=== PATIENT | male | born 1960 | race Caucasian/White ===

== ENCOUNTER 2022-05-25 10:44 | Outpatient (REF) | payer OTHER, SELFPAY ==
[2022-05-25 14:28] LABS: Alanine Aminotransferase 27 U/L (0-40); Albumin Level 4.3 g/dL (3.5-5.0); Alkaline Phosphatase 61 U/L (39-117); Anion Gap 14 (12-20); Aspartate Amino Transferase 28 U/L (5-37); Bilirubin Total 1.4 mg/dL (0.0-1.0); Blood Urea Nitrogen 14 mg/dL (9-16); Calcium 9.4 mg/dL (8.4-10.2); Carbon Dioxide 27 mmol/L (22-29); Chloride 104 mmol/L (96-108); Cholesterol 126 mg/dL; Estimated Glomerular Filt Rate > 60; Glucose Fasting 94 mg/dL (60-99); HDL Cholesterol 49 mg/dL; LDL Cholesterol Calculated 67 mg/dl; Potassium 3.8 mmol/L (3.3-5.1); Sodium 141 mmol/L (135-145); Total Protein 7.1 g/dL (6.5-8.0); Triglycerides 52 mg/dL
[2022-05-25 14:40] LABS: Prostate Specific Antigen Scr 0.85 ng/mL (<0.05-4.0); TSH reflex Free T4 2.65 uIU/mL (0.32-4.0)
== END 2022-05-25 10:45 | disposition home or self-care (01) ==
LOC: HO.WFDLDS 10:44
PROVIDERS: Visit Provider Family Medicine
DX: Z00.00 Encounter for general adult medical examination without abnormal findings (principal); Z12.5 Encounter for screening for malignant neoplasm of prostate
CPT/HCPCS: 36415; 80053; 80061; 84153; 84443

== ENCOUNTER 2022-08-03 11:59 | Outpatient (REF) | payer OTHER, SELFPAY ==
[2022-08-03 14:41] LABS: Cholesterol 142 mg/dL; HDL Cholesterol 45 mg/dL; LDL Cholesterol Calculated 78 mg/dl; Triglycerides 99 mg/dL
== END 2022-08-03 12:00 | disposition home or self-care (01) ==
LOC: HO.WFDLDS 11:59
PROVIDERS: Visit Provider Family Medicine
DX: Z00.00 Encounter for general adult medical examination without abnormal findings (principal); E78.5 Hyperlipidemia, unspecified
CPT/HCPCS: 36415; 80061

== ENCOUNTER 2023-08-09 08:57 | Outpatient (AMB) | payer OTHER, SELFPAY ==
--- NOTE | 2023-08-09 09:10 | MHC.PC.OV ---
Vital Signs 08/09/23 09:12 Height 5 ft 11 in Weight 206 lb BMI 28.7 BP 128/76 Blood Pressure Location Lt brachial Position Sitting Pulse 73 Pulse Source Pulse Oximeter Pulse Oximetry (%) 98 Oxygen Delivery Method Room Air Intake Visit Reasons: CPE with f/u labs and health maint. Intake Note: Patient is here for his physical today. Allergies No Known Allergies Allergy (Verified 08/09/23 09:14) Tobacco use date assessed: 08/09/23 Fall risk assessment: No Falls in past year Last assessed Fall Risk: 08/09/23 Dental Screening Dental Screen Date: 08/09/23 Did you have a dental visit in the last 12 months?: Yes Did you have a dental problem in the last 6 months where you did not have access to dental care?: No Was dental information given to patient?: Patient has dentist HPI CPE with f/u labs and health maint. HPI Details 62 y/o male presents for a CPE with f/u labs and health maintenance. No recent labs to review. Blood pressure today 128/76. He is on metoprolol 100mg daily. [facility] Social History (Reviewed 08/09/23 @ 09:16 by Betty Durand [facility]) Housing: House Patient Tobacco Use Status: Never used Tobacco Tobacco use type: Cigarette e-Cigarette/Vaping Use: Never Used Second Hand Smoke Exposure: No service: No Current occupational status: employed Current occupational exposures/hazards: No Cognitive needs: No Hearing needs: No Vision needs: No Questionnaire Thrive Questionnaire Date Thrive assessed: 09/03/22 TYE-7 AMB Questionnaire TYE-7 Date TYE - 7 assessed: 09/03/22 Source: Developed by Drs. Mka Davis, Tiffanie Vora, Thaddeus Kumari and colleagues, with an educational ty from [employer]. Review of Systems Const Denies chills, Denies fatigue, Denies fever(s), Denies headache(s) and Denies weakness Eyes Denies change in vision ENT Denies dizziness, Denies headache(s), Denies hearing loss, Denies nasal congestion, Denies sinus pain, Denies sinus pressure and Denies sore throat Card Denies chest pain, Denies lightheadedness, Denies dyspnea and Denies other (palpitations) Resp Denies cough, Denies dyspnea and Denies wheezing GI Denies abdominal pain, Denies melena, Denies hematochezia, Denies change in bowel habits, Denies dyspepsia and Denies nausea Denies hematuria and Denies dysuria Musc Denies abnormal gait, Denies myalgias, Denies arthralgias, Denies numbness and Denies tingling Skin/Breast Denies rash, Denies unusual bruising and Denies wounds Neuro Denies abnormal gait, Denies dizziness, Denies headache(s), Denies memory loss, Denies numbness, Denies Sensory deficit (Neuro), Denies tingling and Denies weakness Psych Denies anxiety, Denies depression and Denies memory loss Endo Denies cold intolerance, Denies fatigue, Denies heat intolerance, Denies polydipsia and Denies polyuria Winston/Lymph Denies easy bleeding and Denies easy bruising Aller/Immun Denies wheezing Physical exam (Primary Care) Vital Signs: Last Vital Signs Pulse 73 08/09/23 09:12 BP 128/76 08/09/23 09:12 Pulse Ox 98 08/09/23 09:12 Oxygen Delivery Method Room Air 08/09/23 09:12 BMI result Body Mass Index 28.7 Tobacco/Smoking Status: Tobacco use Status Tobacco use date assessed 08/09/23 08/09/23 09:19 Patient Tobacco Use Status Never used Tobacco 08/09/23 09:10 Tobacco use type Cigarette 08/09/23 09:10 e-Cigarette/Vaping Use Never Used 08/09/23 09:10 Thrive Assessment: Date of Thrive Assessment Date Thrive assessed 09/03/22 08/09/23 09:10 Const General: no acute distress, well developed, alert and awake Nutritional Appearance: well nourished Orientation/consciousness: patient oriented x3 HENMT Head: Yes normocephalic and Yes atraumatic Ears: hearing grossly normal bilaterally and TM's normal bilaterally General nose exam: Normal external nose present and Normal nares present Mouth: Normal oral and palatal mucosa present and moist mucous membranes Teeth and gingiva: dentition normal Throat: Yes posterior oropharynx normal Eyes General: appearance normal, both eyes and all related structures Pupils: Equal, round and reactive pupils present and Pupil accommodation reflex normal EOM: EOMs intact bilaterally Neck Neck: Yes normal visual inspection, Yes no lymphadenopathy and Yes trachea midline Thyroid: Thyroid normal Carotids: no bruits Lymphatic: no lymphadenopathy noted Chest Chest palpation & inspection: normal inspection of the chest Resp Effort & Inspection: normal respiratory effort Auscultation: clear to auscultation bilaterally Cardio Rate: regular rate Rhythm: regular rhythm Heart sounds: S1 normal heart sound present, S2 normal heart sound present, no gallops, no murmurs and no rubs Bruits: no abdominal aortic bruits and no carotid bruits GI Palpation (GI): No Abdominal aortic bruit present, Soft to palpation, nontender, No hepatosplenomegaly present and No Rebound tenderness present Auscultation: normal bowel sounds General: Yes no CVA tenderness Back/Spine/Pelvis Back: no CVA tenderness Cervical Spine: cervical ROM normal and No Cervical spine tenderness Thoracic/Lumbar Spine: thoraco-lumbar ROM normal, No pain with thoraco-lumbar ROM, No thoracic spinal tenderness and No lumbar spinal tenderness Skin Lesions: no lesions Rashes: no rashes Trauma: no lacerations or abrasions Wounds: no wounds Nails: normal Neuro General: patient oriented x3 Cranial nerves: Yes Equal, round and reactive pupils present Cognition (Neuro): normal cognition Gait exam (Neuro): Normal gait present Motor exam (neuro): 5/5 motor strength present throughout Sensory Exam: No Sensory deficit (Neuro) Deep tendon reflexes (DTR's): Right patellar reflex intensity grade: 2+ and Left patellar reflex intensity grade: 2+ Extrem General: Yes normal to inspection and No edema Psych Appearance: grossly normal Affect: normal affect Attitude: cooperative Thought process: Normal thought process present Assessment and Plan Assessment & Plan (1) Adult general medical exam: Code(s): Z00.00 - Encounter for general adult medical examination without abnormal findings Plan: 62-year-old?male?presents?for?complete?physical?exam Encouraged?healthy?diet?with?active?lifestyle?and?plenty?of?exercise (2) Unilateral hearing loss: Code(s): H91.90 - Unspecified hearing loss, unspecified ear Plan: Right?ear?injury?and?TM?perforation He?notes?that?hearing?has?been?improving?but?still?has?deficit Follow-up?with?ENT?as?recommended No?current?perforation?and?he?can?use?Debrox?drops?for?cerumen (3) PAC (premature atrial contraction): Code(s): I49.1 - Atrial premature depolarization Plan: EKG?shows?PACs?with?mild?sinus?bradycardia.??Otherwise?normal?EKG (4) Screening for colon cancer: Code(s): Z12.11 - Encounter for screening for malignant neoplasm of colon Plan: Patient?says?he?had?a?colonoscopy?a?couple?of?years?ago?through?[facility] Will?request?report (5) Screening for prostate cancer: Code(s): Z12.5 - Encounter for screening for malignant neoplasm of prostate Plan: PSA?is?ordered (6) Palpitations: Code(s): R00.2 - Palpitations Plan: EKG: shows?PACs?with?mild?sinus?bradycardia.??Otherwise?normal?EKG Orders: Orders Comprehensive [place]. Panel Fast Today Z00.00 - Encounter for general adult medical examination without abnormal findings Lipid Panel Today Z00.00 - Encounter for general adult medical examination without abnormal findings Microalbumin, Random (w Creat) Today I10 - Essential (primary) hypertension, Z00.00 - Encounter for general adult medical examination without abnormal findings AMB EKG-In Office Today R00.2 - Palpitations Testosterone, Free/Total Today Z00.00 - Encounter for general adult medical examination without abnormal findings Complete Blood Count Auto Diff Today Z00.00 - Encounter for general adult medical examination without abnormal findings Prostate Specific Antigen Scr Today Z00.00 - Encounter for general adult medical examination without abnormal findings, Z12.5 - Encounter for screening for malignant neoplasm of prostate TSH reflex Free T4 Today Z00.00 - Encounter for general adult medical examination without abnormal findings UA and rflx microscopic Today Z00.00 - Encounter for general adult medical examination without abnormal findings Coding Level of Care Code Est Pt Level 4 (35750) Est Pt Prev Care 40-64y(68787) Diagnoses Adult general medical exam Z00.00 Unilateral hearing loss H91.90 PAC (premature atrial contraction) I49.1 Screening for colon cancer Z12.11 Screening for prostate cancer Z12.5 Palpitations R00.2
[2023-08-09 09:12] VITALS: BP 128/76; PULSE 73; O2SAT 98; BMI 28.7
== END 2023-08-09 10:34 | disposition home or self-care (01) ==
PROVIDERS: Visit Provider Family Medicine
DX: Z00.00 Encounter for general adult medical examination without abnormal findings (principal); H91.91 Unspecified hearing loss, right ear; I49.1 Atrial premature depolarization; R00.2 Palpitations
CPT/HCPCS: 93000; 99214; 99396

== ENCOUNTER 2023-08-09 10:37 | Outpatient (REF) | payer OTHER, SELFPAY ==
[2023-08-09 14:26] LABS: MANUAL DIFF FLAG NO
[2023-08-09 14:28] LABS: Appearance Urine Clear; Color Urine Yellow; Glucose Urine UA Negative (Negative); Leukocyte Esterase Urine Negative (Negative); Nitrite Urine Negative (Negative); PH 5.5 (5.0-9.0); Specific Gravity - Urine <= 1.005 (1.005-1.025); Urine Blood Negative (Negative); Urine Ketones Negative (Negative); Urine Protein Negative (Neg-Trace)
[2023-08-09 14:29] LABS: Basophils Percent Auto 0.8 % (0-2); Eosinophils Absolute Auto 0.1 X10*3/uL (0.0-0.4); Eosinophils Percent Auto 2.6 % (0-4); Hematocrit 43.9 % (42.0-52.0); Hemoglobin 14.9 g/dl (14.0-18.0); Imm Gran Abs Auto 0.02 X10*3/uL (0.00-0.03); Imm Gran Pct Auto 0.4 % (0.0-0.4); Lymphocytes Absolute Auto 1.3 X10*3/uL (1.2-4.9); Mean Corpuscular HGB Conc 33.9 g/dl (31.0-36.0); Mean Corpuscular Hemoglobin 30.7 pg (27.0-33.0); Mean Corpuscular Volume 90.5 fL (80.0-98.0); Monocytes Absolute Auto 0.5 X10*3/uL (0.1-1.2); Monocytes Percent Auto 8.9 % (2-11); Neutrophils Absolute Auto 3.1 x10*3/uL (2.0-8.3); Neutrophils Percent Auto 61.3 % (45-73); Platelet Count 149 X10*3/uL (160-400); Red Blood Count 4.85 X10*6/uL (4.60-5.80); Red Cell Distribution Width 12.8 % (11.0-16.0)
[2023-08-09 15:03] LABS: Alanine Aminotransferase 32 U/L (0-40); Albumin Level 4.3 g/dL (3.5-5.0); Alkaline Phosphatase 64 U/L (39-117); Anion Gap 12 (12-20); Aspartate Amino Transferase 31 U/L (5-37); Bilirubin Total 1.5 mg/dL (0.0-1.0); Blood Urea Nitrogen 13 mg/dL (9-16); Calcium 9.4 mg/dL (8.4-10.2); Carbon Dioxide 27 mmol/L (22-29); Chloride 107 mmol/L (96-108); Cholesterol 118 mg/dL (<200); Estimated Glomerular Filt Rate > 60; Glucose Fasting 105 mg/dL (60-99); HDL Cholesterol 42 mg/dL (>40); LDL Cholesterol Calculated 63 mg/dL (<100); Potassium 4.1 mmol/L (3.3-5.1); Sodium 142 mmol/L (135-145); Total Protein 7.4 g/dL (6.5-8.0); Triglycerides 68 mg/dL (<150)
[2023-08-09 15:10] LABS: Prostate Specific Antigen Scr 0.98 ng/mL (<0.05-4.0)
[2023-08-09 15:12] LABS: Creatinine Urine 24.34 mg/dL; Microalbumin Urine < 5.0 mg/L
[2023-08-09 15:19] LABS: TSH reflex Free T4 2.26 uIU/mL (0.32-4.0)
[2023-08-16 19:58] LABS: Testosterone, Free 84.9 pg/mL (35.0-155.0); Testosterone, Total 524 ng/dL (250-1100)
== END 2023-08-09 10:38 | disposition home or self-care (01) ==
LOC: HO.WFDLDS 10:37
PROVIDERS: Visit Provider Family Medicine
DX: Z00.00 Encounter for general adult medical examination without abnormal findings (principal); Z12.5 Encounter for screening for malignant neoplasm of prostate; I10 Essential (primary) hypertension
CPT/HCPCS: 36415; 80053; 80061; 81003; 82043; 82570; 84153; 84402; 84403; 84443; 85025

== ENCOUNTER 2023-09-21 16:49 | Outpatient (AMB) | payer OTHER, SELFPAY ==
--- NOTE | 2023-09-21 16:41 | A.OFFPC_ITS ---
Intake Visit Reasons: f/u CPE-labs Intake Note: Patient is following up on labs today. Allergies No Known Allergies Allergy (Verified 09/21/23 16:43) Tobacco use date assessed: 09/21/23 HPI f/u CPE-labs HPI Details 62 y/o male presents to f/u CPE-labs via telemedicine. Labs were drawn 08/09/23. Reviewed labs with pt. Elevated fasting glucose of 105. Triglycerides 68. TC 118. LDL 63. HDL 52. He is on artovastatin 20mg daily. [facility] Social History (Reviewed 08/09/23 @ 09:16 by Betty Durand [facility]) Housing: House Patient Tobacco Use Status: Never used Tobacco Tobacco use type: Cigarette e-Cigarette/Vaping Use: Never Used Second Hand Smoke Exposure: No service: No Current occupational status: employed Current occupational exposures/hazards: No Cognitive needs: No Hearing needs: No Vision needs: No Questionnaire PHQ-9 Over the last 2 weeks, how often have you been bothered by any of the following problems? 1. Little interest or pleasure in doing things: not at all 2. Feeling down, depressed, or hopeless: not at all 3. Trouble falling or staying asleep, or sleeping too much: not at all 4. Feeling tired or having little energy: not at all 5. Poor appetite or overeating: not at all 6. Feeling bad about yourself - or that you are a failure or have let yourself or your family down: not at all 7. Trouble concentrating on things, such as reading the newspaper or watching television: not at all 8. Moving or speaking so slowly that other people could have noticed. Or the opposite - being so fidgety or restless that you have been moving around a lot more than usual: not at all 9. Thoughts that you would be better off or of hurting yourself in some way: not at all Total score: 0 Source: Developed by Drs. Mak Davis, Tiffanie Vora, Thaddeus Kumari and colleagues, with an educational ty from [employer]. Thrive Questionnaire Date Thrive assessed: 09/21/23 I am a: Patient What is your living situation today?: I have a steady place to live Within the past 12 months, did the food you bought not last and you didn't have the money to get more?: Never true Within the past 12 months, did you worry whether your food would run out before you got money to buy more?: Never true Do you have trouble paying for medicines?: No Do you have trouble getting transportation to medical appointments?: No Do you have trouble paying your heating and electricity bill?: No Do you have trouble taking care of your child, family member or friend?: No Do you have trouble with day-to-day activities such as bathing, preparing meals, shopping, managing finances, etc.?: No Are you currently unemployed and looking for a job?: No Are you interested in more education?: No THRIVE Score: 0 AUDIT C Alcohol Use Questionnaire (AUDIT-C) 1. How often do you have a drink containing alcohol?: Never 3. How often do you have six or more drinks on one occasion?: Never Total Score: 0 TYE-7 AMB Questionnaire TYE-7 Date TYE - 7 assessed: 09/21/23 Feeling nervous, anxious, or on edge: 0 = Not at all Not being able to stop or control worryin = Not at all Worrying too much about different things: 0 = Not at all Trouble relaxin = Not at all Being so restless that it is hard to sit still: 0 = Not at all Becoming easily annoyed or irritable: 0 = Not at all Feeling afraid as if something awful might happen: 0 = Not at all Total TYE-7 score (0-4 normal; 5-9 mild; 10-14 moderate; 15-21 severe): 0 Source: Developed by Drs. Mak Davis, Tiffanie Vora, Thaddeus Kumair and colleagues, with an educational ty from [employer]. Review of Systems Const Denies chills, Denies fatigue, Denies fever(s), Denies headache(s) and Denies weakness ENT Denies dizziness and Denies headache(s) Card Denies dyspnea Resp Denies cough, Denies dyspnea, Denies wheezing and Denies other (shortness of abbie ath) Musc Denies numbness and Denies tingling Neuro Denies dizziness, Denies headache(s), Denies numbness, Denies tingling and Denies weakness Psych Denies anxiety and Denies depression Endo Denies fatigue Aller/Immun Denies wheezing Physical exam (Primary Care) Tobacco/Smoking Status: Tobacco use Status Tobacco use date assessed 09/21/23 09/21/23 16:43 Patient Tobacco Use Status Never used Tobacco 09/21/23 16:42 Tobacco use type Cigarette 09/21/23 16:42 e-Cigarette/Vaping Use Never Used 09/21/23 16:42 PHQ-9: PHQ-9 Score PHQ-9: Total score 0 09/21/23 17:06 Thrive Assessment: Date of Thrive Assessment Date Thrive assessed 09/21/23 09/21/23 16:48 Telehealth Telehealth Location of provider rendering services: practice address Location of patient: address on file Patient Identification confirmed using: Name, : Yes Telehealth method: voice only Patient verbally consented to treatment: Yes Patient verbally consented to billing insurance company: Yes Patient informed of any privacy concerns related to visit: Yes Minutes spent on Phone/Video with Pt.: 23 Assessment and Plan Assessment & Plan (1) Elevated fasting glucose: Code(s): R73.01 - Impaired fasting glucose Plan: Mildly?elevated?fasting?blood?sugar.??Patient?has?a?family?history?of?diabetes?h owever. He?jamari l?work?on?a?diet?lower?in?sugars?and?starches.??He?is?exercising?and?I?encourage d?decreased?portion?sizes?and?diet?for?some?weight?loss. Will?recheck?his?blood?sugar?fasting?and?A1c?prior?to?his?next?visit (2) Hyperlipidemia: Code(s): E78.5 - Hyperlipidemia, unspecified Plan: Lipids?are?well?controlled.??Continue?atorvastatin?as?prescribed (3) Thrombocytopenia: Code(s): D69.6 - Thrombocytopenia, unspecified Plan: Patient?has?had?mildly?low?platelets?his?whole?life. Other?cell?lines?are?within?normal?limits No?intervention?required.??We?can?keep?an?eye?on?this. Orders: Orders Hemoglobin A1c Today R73.01 - Impaired fasting glucose Comprehensive [place]. Panel Fast Today R73.01 - Impaired fasting glucose, Z00.00 - Encounter for general adult medical examination without abnormal findings Microalbumin, Random (w Creat) Today I10 - Essential (primary) hypertension, R73.01 - Impaired fasting glucose Coding Level of Care Code Tele Est Pt Level 2 (07375) Diagnoses Elevated fasting glucose R73.01 Hyperlipidemia E78.5 Thrombocytopenia D69.6
== END 2023-09-21 16:51 | disposition home or self-care (01) ==
LOC: HO.HMGFM 16:49
PROVIDERS: PCP Family Medicine; Visit Provider Family Medicine
DX: R73.01 Impaired fasting glucose (principal); E78.5 Hyperlipidemia, unspecified; D69.6 Thrombocytopenia, unspecified
CPT/HCPCS: 99212

== ENCOUNTER 2023-11-22 11:06 | Outpatient (AMB) | payer OTHER, SELFPAY ==
[2023-11-22 11:19] VITALS: BP 120/72; PULSE 76; TEMP 36.8; O2SAT 96; BMI 29.1
--- NOTE | 2023-11-22 11:19 | AM.OFFWIN_ITS ---
Intake Vital Signs 11/22/23 11:19 Height 5 ft 11 in Weight 209 lb BMI 29.1 BP 120/72 Blood Pressure Location Lt brachial Position Sitting Pulse 76 Pulse Source Pulse Oximeter Temp 98.3 F Temp Source Temporal Artery Scan Pulse Oximetry (%) 96 Oxygen Delivery Method Room Air Intake Visit Reasons: EP Flu like symptoms (masked) Intake Note: pt ishere today for flu symptoms started 3 weeks ago Patient Tobacco Use Status: Never used Tobacco Allergies No Known Allergies Allergy (Verified 11/22/23 11:22) Do you need a note to return to daycare/school/sports/work: No HPI HPI Comments History of Present Illness Details 62-year-old male complaining of congesti on ear pain, sinus pressure x1 month. [facility] Social History Housing: House Patient Tobacco Use Status: Never used Tobacco Tobacco use type: Cigarette e-Cigarette/Vaping Use: Never Used Second Hand Smoke Exposure: No service: No Current occupational status: employed Current occupational exposures/hazards: No Cognitive needs: No Hearing needs: No Vision needs: No Review of Systems Const All systems reviewed & are unremarkable except as noted in HPI and below Eyes Reports no additional complaints ENT Reports Normal hearing present, Reports otalgia, Reports post nasal drip and Reports sinus pressure Card Reports no additional complaints Resp Reports cough GI Reports no additional complaints Neuro Reports Normal hearing present Physical Exam Vital Signs: Last Vital Signs Temp 98.3 F 11/22/23 11:19 Pulse 76 11/22/23 11:19 BP 120/72 11/22/23 11:19 Pulse Ox 96 11/22/23 11:19 Oxygen Delivery Method Room Air 11/22/23 11:19 BMI result Body Mass Index 29.1 Const General: healthy appearing and no acute distress HEENT Head: Yes normal to inspection, Yes normocephalic and Yes atraumatic Ears: hearing grossly normal bilaterally and TM abnormal bulging on the right and erythematous on the right General nose exam: Normal external nose present Face and sinus: Yes sinus tenderness Throat: Yes postnasal drainage Resp Effort & Inspection: normal respiratory effort Auscultation: clear to auscultation bilaterally Cardio Rate: regular rate Rhythm: regular rhythm Neuro Cranial nerves: Yes Normal hearing present Assessment & Plan Assessment & Plan (1) Otitis media: Code(s): H66.90 - Otitis media, unspecified, unspecified ear Plan: The patient will take antibiotics for the next week follow up as needed (2) Sinusitis: Code(s): J32.9 - Chronic sinusitis, unspecified Plan: See plan Plan See plan Medications: New doxycycline hyclate 100 mg PO BID 14 caps 0RF 7 days Coding Level of Care Code Est Pt Level 3 (40831) Diagnoses Otitis media H66.90 Sinusitis J32.9
== END 2023-11-22 11:57 | disposition home or self-care (01) ==
PROVIDERS: PCP Family Medicine; Visit Provider Physician Assistant Medical
DX: H66.90 Otitis media, unspecified, unspecified ear (principal); J32.9 Chronic sinusitis, unspecified
CPT/HCPCS: 99213

== ENCOUNTER 2024-01-30 11:22 | Outpatient (REF) | payer OTHER, SELFPAY ==
[2024-01-30 15:10] LABS: Alanine Aminotransferase 28 U/L (0-40); Alkaline Phosphatase 69 U/L (39-117); Anion Gap 10 (12-20); Aspartate Amino Transferase 30 U/L (5-37); Bilirubin Total 1.2 mg/dL (0.0-1.0); Blood Urea Nitrogen 12 mg/dL (9-16); Calcium 9.4 mg/dL (8.4-10.2); Carbon Dioxide 29 mmol/L (22-29); Chloride 105 mmol/L (96-108); Estimated Glomerular Filt Rate > 60; Glucose Fasting 90 mg/dL (60-99); Potassium 3.7 mmol/L (3.3-5.1); Sodium 140 mmol/L (135-145); Total Protein 7.2 g/dL (6.5-8.0)
[2024-01-30 15:12] LABS: Estimated Average Glucose 105 mg/dL; Hemoglobin A1c % 5.3 % (<6.0)
== END 2024-01-30 11:23 | disposition home or self-care (01) ==
LOC: HO.WFDLDS 11:22
PROVIDERS: Visit Provider Family Medicine
DX: Z00.00 Encounter for general adult medical examination without abnormal findings (principal); R73.01 Impaired fasting glucose
CPT/HCPCS: 36415; 80053; 83036

== ENCOUNTER 2024-01-31 14:00 | Outpatient (AMB) | payer OTHER, SELFPAY ==
--- NOTE | 2024-01-31 14:07 | A.OFFPC_ITS ---
Vital Signs 01/31/24 14:10 Height 5 ft 11 in Weight 198 lb BMI 27.6 BP 120/70 Blood Pressure Location Rt brachial Position Sitting Pulse 70 Pulse Source Pulse Oximeter Pulse Oximetry (%) 97 Oxygen Delivery Method Room Air Intake Visit Reasons: Follow-up elevated fasting blood sugar Intake Note: Patient is here for follow up on elevated fasting blood sugar today. Allergies No Known Allergies Allergy (Verified 11/22/23 11:22) Medication List - Last Reconciled 01/31/24 by Roverto Rain MD atorvastatin 20 mg PO DAILY 90 days doxycycline hyclate 100 mg PO BID 7 days metoprolol succinate ER (Toprol XL) 100 mg PO DAILY 90 days valacyclovir 500 mg PO DAILY 90 days Tobacco use date assessed: 09/21/23 Fall risk assessment: No Falls in past year Last assessed Fall Risk: 01/31/24 Dental Screening Dental Screen Date: 08/09/23 Did you have a dental visit in the last 12 months?: Yes Did you have a dental problem in the last 6 months where you did not have access to dental care?: No Was dental information given to patient?: Patient has dentist HPI Follow-up elevated fasting blood sugar HPI Details 63 y/o male presents to f/u elevated fas ting blood sugars. Labs were drawn 01/30/24. Reviewed labs with pt. A1c 5.3%. HPI Comments History of Present Illness Details Documentation assistance for Roverto Rain MD, was provided by Gaurav Randhawa,[employer] on 01/31/2024 at 2:37 PM EST. I, Dr. Rain, have read, observed, and verified documentation.? [facility] Social History Housing: House Patient Tobacco Use Status: Never used Tobacco Tobacco use type: Cigarette e-Cigarette/Vaping Use: Never Used Second Hand Smoke Exposure: No service: No Current occupational status: employed Current occupational exposures/hazards: No Cognitive needs: No Hearing needs: No Vision needs: No Questionnaire PHQ-9 Over the last 2 weeks, how often have you been bothered by any of the following problems? 1. Little interest or pleasure in doing things: not at all 2. Feeling down, depressed, or hopeless: not at all 3. Trouble falling or staying asleep, or sleeping too much: not at all 4. Feeling tired or having little energy: not at all 5. Poor appetite or overeating: not at all 6. Feeling bad about yourself - or that you are a failure or have let yourself or your family down: not at all 7. Trouble concentrating on things, such as reading the newspaper or watching television: not at all 8. Moving or speaking so slowly that other people could have noticed. Or the opposite - being so fidgety or restless that you have been moving around a lot more than usual: not at all 9. Thoughts that you would be better off or of hurting yourself in some way: not at all Total score: 0 Depression Screening Interpretation: Negative Depression Screening Done: Yes Source: Developed by Drs. Mak Davis, Tiffanie Vora, Thaddeus Kumari and colleagues, with an educational ty from [employer]. Thrive Questionnaire Date Thrive assessed: 09/21/23 I am a: Patient What is your living situation today?: I have a steady place to live Within the past 12 months, did the food you bought not last and you didn't have the money to get more?: Never true Within the past 12 months, did you worry whether your food would run out before you got money to buy more?: Never true Do you have trouble paying for medicines?: No Do you have trouble getting transportation to medical appointments?: No Do you have trouble paying your heating and electricity bill?: No Do you have trouble taking care of your child, family member or friend?: No Do you have trouble with day-to-day activities such as bathing, preparing meals, shopping, managing finances, etc.?: No Are you currently unemployed and looking for a job?: No Are you interested in more education?: No THRIVE Score: 0 AUDIT C Alcohol Use Questionnaire (AUDIT-C) 1. How often do you have a drink containing alcohol?: Never 3. How often do you have six or more drinks on one occasion?: Never Total Score: 0 TYE-7 AMB Questionnaire TYE-7 Date TYE - 7 assessed: 01/31/24 Not being able to stop or control worryin = Not at all Worrying too much about different things: 0 = Not at all Trouble relaxin = Not at all Being so restless that it is hard to sit still: 0 = Not at all Becoming easily annoyed or irritable: 0 = Not at all Feeling afraid as if something awful might happen: 0 = Not at all Source: Developed by Drs. Mak Davis, Tiffanie Vora, Thaddeus Kumari and colleagues, with an educational ty from [employer]. Review of Systems Const Denies chills, Denies fatigue, Denies fever(s), Denies headache(s) and Denies weakness ENT Denies dizziness and Denies headache(s) Card Denies dyspnea Resp Denies cough, Denies dyspnea, Denies wheezing and Denies other (shortness of breath) Musc Denies numbness and Denies tingling Neuro Denies dizziness, Denies headache(s), Denies numbness, Denies tingling and Denies weakness Psych Denies anxiety and Denies depression Endo Denies fatigue Aller/Immun Denies wheezing Physical exam (Primary Care) Vital Signs: Last Vital Signs Pulse 70 01/31/24 14:10 BP 120/70 01/31/24 14:10 Pulse Ox 97 01/31/24 14:10 Oxygen Delivery Method Room Air 01/31/24 14:10 BMI result Body Mass Index 27.6 Tobacco/Smoking Status: Tobacco use Status Tobacco use date assessed 09/21/23 01/31/24 14:10 Patient Tobacco Use Status Never used Tobacco 01/31/24 14:10 Tobacco use type Cigarette 01/31/24 14:10 e-Cigarette/Vaping Use Never Used 01/31/24 14:10 PHQ-9: PHQ-9 Score PHQ-9: Total score 0 01/31/24 14:19 Depression Screening Interpretation: Negative Thrive Assessment: Date of Thrive Assessment Date Thrive assessed 09/21/23 01/31/24 14:10 Const General: well developed; No acute distress Nutritional Appearance: well nourished Orientation/consciousness: patient oriented x3 HENMT Head: Yes normocephalic and Yes atraumatic Eyes General: appearance normal, both eyes and all related structures Pupils: Equal, round and reactive pupils present EOM: EOMs intact bilaterally Resp Effort & Inspection: normal respiratory effort Auscultation: clear to auscultation bilaterally Cardio Rate: regular rate Rhythm: regular rhythm Heart sounds: S1 normal heart sound present, S2 normal heart sound present, no gallops, no murmurs and no rubs Neuro General: patient oriented x3 and gait normal Cranial nerves: Yes Equal, round and reactive pupils present Psych Affect: normal affect Assessment and Plan Assessment & Plan (1) Elevated fasting glucose: Code(s): R73.01 - Impaired fasting glucose Plan: Fasting?blood?sugar?90?and?his?A1c?5.3?though?a t?prior?check?his?fasting?blood?sugar?was?105. No?diabetes?or?pre?diabetes.??He?does?have?a?strong?family?history?of?diabetes?a nd?so?following?his?sugars. Encouraged?diet?low?in?sugars?and?starches.? ?Encouraged?weight?control?and?exercise (2) Palpitations: Code(s): R00.2 - Palpitations Plan: History?of?palpitations?and?he?is?on?metoprolol.??No?diagnosis?of?hypertension He?is?concerned?that?his?blood?pressure?is?too?low?as?SBP?sometimes?gets?down?in to?the?1-teens?at?home, with?DBP?in?60s. Reassured?him?that?those?blood?pressures?are?fine.??He?notes?that?sometimes?derik ding?up?quickly?causes?him?to?feel?a?little?lightheaded?and?I?encouraged?him?to? increase?hydration?and cautioned?him?when?standing?up?quickly. No?medication?changes?today. Orders: Orders Complete Blood Count Auto Diff Today Z00.00 - Encounter for general adult medical examination without abnormal findings Lipid Panel Today Z00.00 - Encounter for general adult medical examination without abnormal findings Microalbumin, Random (w Creat) Today I10 - Essential (primary) hypertension Comprehensive [place]. Panel Fast Today Z00.00 - Encounter for general adult medical examination without abnormal findings Prostate Specific Antigen Scr Today Z12.5 - Encounter for screening for malignant neoplasm of prostate TSH reflex Free T4 Today Z00.00 - Encounter for general adult medical examination without abnormal findings UA and rflx microscopic Today Z00.00 - Encounter for general adult medical examination without abnormal findings Coding Level of Care Code Est Pt Level 3 (75320) Diagnoses Elevated fasting glucose R73.01 Palpitations R00.2
[2024-01-31 14:10] VITALS: BP 120/70; PULSE 70; O2SAT 97; BMI 27.6
== END 2024-01-31 14:51 | disposition home or self-care (01) ==
PROVIDERS: PCP Family Medicine; Visit Provider Family Medicine
DX: R73.01 Impaired fasting glucose (principal); R00.2 Palpitations
CPT/HCPCS: 99213

== ENCOUNTER 2024-08-01 11:35 | Outpatient (REF) | payer OTHER, SELFPAY ==
[2024-08-01 14:11] LABS: MANUAL DIFF FLAG NO
[2024-08-01 14:15] LABS: Basophils Absolute Auto 0.1 X10*3/uL (0.0-0.2); Basophils Percent Auto 0.9 % (0-2); Eosinophils Absolute Auto 0.2 X10*3/uL (0.0-0.4); Eosinophils Percent Auto 3.2 % (0-4); Hematocrit 42.7 % (42.0-52.0); Hemoglobin 14.3 g/dl (14.0-18.0); Imm Gran Abs Auto 0.01 X10*3/uL (0.00-0.03); Imm Gran Pct Auto 0.2 % (0.0-0.4); Lymphocytes Absolute Auto 1.7 X10*3/uL (1.2-4.9); Lymphocytes Percent Auto 29.4 % (20-40); Mean Corpuscular HGB Conc 33.5 g/dl (31.0-36.0); Mean Corpuscular Hemoglobin 30.6 pg (27.0-33.0); Mean Corpuscular Volume 91.4 fL (80.0-98.0); Mean Platelet Volume 11.3 fL (9.4-12.4); Monocytes Absolute Auto 0.6 X10*3/uL (0.1-1.2); Monocytes Percent Auto 9.8 % (2-11); Neutrophils Absolute Auto 3.2 x10*3/uL (2.0-8.3); Neutrophils Percent Auto 56.5 % (45-73); Platelet Count 139 X10*3/uL (160-400); Red Blood Count 4.67 X10*6/uL (4.60-5.80); Red Cell Distribution Width 12.1 % (11.0-16.0); White Blood Count 5.7 X10*3/uL (4.8-10.8)
[2024-08-01 14:24] LABS: Appearance Urine Clear; Color Urine Yellow; Glucose Urine UA Negative (Negative); Leukocyte Esterase Urine Negative (Negative); Nitrite Urine Negative (Negative); Urine Blood Negative (Negative); Urine Ketones Negative (Negative); Urine Protein Negative (Neg-Trace)
[2024-08-01 14:37] LABS: Alanine Aminotransferase 25 U/L (0-40); Alkaline Phosphatase 61 U/L (39-117); Anion Gap 8 (12-20); Aspartate Amino Transferase 33 U/L (5-37); Blood Urea Nitrogen 10 mg/dL (9-16); Calcium 9.7 mg/dL (8.4-10.2); Carbon Dioxide 31 mmol/L (22-29); Chloride 107 mmol/L (96-108); Cholesterol 121 mg/dL (<200); Estimated Glomerular Filt Rate > 60; Glucose Fasting 81 mg/dL (60-99); HDL Cholesterol 42 mg/dL (>40); LDL Cholesterol Calculated 57 mg/dL (<100); Potassium 3.9 mmol/L (3.3-5.1); Sodium 142 mmol/L (135-145); Total Protein 6.9 g/dL (6.5-8.0); Triglycerides 110 mg/dL (<150)
[2024-08-01 14:44] LABS: Creatinine Urine 67.06 mg/dL; Microalbum/Creatinine Ratio Ur 8.9 ug/mg cr (<30)
[2024-08-01 14:54] LABS: TSH reflex Free T4 2.25 uIU/mL (0.32-4.0)
== END 2024-08-01 11:36 | disposition home or self-care (01) ==
LOC: HO.WFDLDS 11:35
PROVIDERS: Visit Provider Family Medicine
DX: Z00.00 Encounter for general adult medical examination without abnormal findings (principal); I10 Essential (primary) hypertension; Z12.5 Encounter for screening for malignant neoplasm of prostate; R73.01 Impaired fasting glucose
CPT/HCPCS: 36415; 80053; 80061; 81003; 82043; 82570; 84153; 84443; 85025

== ENCOUNTER 2024-08-06 08:41 | Outpatient (AMB) | payer OTHER, SELFPAY ==
--- NOTE | 2024-08-06 09:11 | A.OFFPC_ITS ---
Vital Signs 08/06/24 09:14 08/06/24 09:18 Height 5 ft 11 in Weight 195 lb 4 oz BMI 27.2 BP 134/62 126/62 Blood Pressure Location Rt brachial Rt brachial Position Sitting Sitting Respiration 14 Pulse 60 Pulse Source Pulse Oximeter Temp 97.9 F Temp Source Oral Pulse Oximetry (%) 98 Oxygen Delivery Method Room Air Intake Visit Reasons: CPE with f/u labs and health maint Intake Note: CPE Allergies No Known Allergies Allergy (Verified 08/06/24 09:11) Medication List - Last Reconciled 08/06/24 by Roverto Rain MD atorvastatin 20 mg PO DAILY 90 days metoprolol succinate ER (Toprol XL) 100 mg PO DAILY 90 days valacyclovir 500 mg PO DAILY 90 days Tobacco use date assessed: 09/21/23 Fall risk assessment: No Falls in past year Last assessed Fall Risk: 08/06/24 Dental Screening Dental Screen Date: 08/06/24 Did you have a dental visit in the last 12 months?: Yes Did you have a dental problem in the last 6 months where you did not have access to dental care?: No Was dental information given to patient?: Patient has dentist HPI CPE with f/u labs and health maint HPI Details 63 y/o male presents for CPE with f/u la bs and health maint. Labs drawn 08/01/24. Reviewed labs with pt. Plt count mildly low at 139. He notes it has always been low around this level. Triglycerides 110. TC 121. LDL 57. HDL 42. PSA 1.20. TSH 2.25. PFSH Social History Housing: House Patient Tobacco Use Status: Never used Tobacco Tobacco use type: Cigarette e-Cigarette/Vaping Use: Never Used Second Hand Smoke Exposure: No service: No Current occupational status: employed Current occupational exposures/hazards: No Cognitive needs: No Hearing needs: No Vision needs: No Questionnaire PHQ-9 Over the last 2 weeks, how often have you been bothered by any of the following problems? 1. Little interest or pleasure in doing things: not at all 2. Feeling down, depressed, or hopeless: not at all 3. Trouble falling or staying asleep, or sleeping too much: not at all 4. Feeling tired or having little energy: not at all 5. Poor appetite or overeating: not at all 6. Feeling bad about yourself - or that you are a failure or have let yourself or your family down: not at all 7. Trouble concentrating on things, such as reading the newspaper or watching television: not at all 8. Moving or speaking so slowly that other people could have noticed. Or the opposite - being so fidgety or restless that you have been moving around a lot more than usual: not at all 9. Thoughts that you would be better off or of hurting yourself in some way: not at all Total score: 0 Depression Screening Interpretation: Negative Depression Screening Done: Yes 51424 - PHQ-9 Billing: Yes Source: Developed by Drs. Mak Davis, Tiffanie Vora, Thaddeus Kumari and colleagues, with an educational ty from [email or web address]. Thrive Questionnaire Date Thrive assessed: 08/06/24 I am a: Patient What is your living situation today?: I have a steady place to live Within the past 12 months, did the food you bought not last and you didn't have the money to get more?: Never true Within the past 12 months, did you worry whether your food would run out before you got money to buy more?: Never true Do you have trouble paying for medicines?: No Do you have trouble getting transportation to medical appointments?: No Do you have trouble paying your heating and electricity bill?: No Do you have trouble taking care of your child, family member or friend?: No Do you have trouble with day-to-day activities such as bathing, preparing meals, shopping, managing finances, etc.?: No Are you currently unemployed and looking for a job?: No Are you interested in more education?: No Please select the resources that you would like help with: None Currently or been in a relationship where the following occur: No concerns reported THRIVE Score: 0 AUDIT C Alcohol Use Questionnaire (AUDIT-C) 1. How often do you have a drink containing alcohol?: Never Total Score: 0 TYE-7 AMB Questionnaire TYE-7 Date TYE - 7 assessed: 08/06/24 Feeling nervous, anxious, or on edge: 0 = Not at all Not being able to stop or control worryin = Not at all Worrying too much about different things: 0 = Not at all Trouble relaxin = Not at all Being so restless that it is hard to sit still: 0 = Not at all Becoming easily annoyed or irritable: 0 = Not at all Feeling afraid as if something awful might happen: 0 = Not at all Total TYE-7 score (0-4 normal; 5-9 mild; 10-14 moderate; 15-21 severe): 0 Source: Developed by Drs. Mak Davis, Tiffanie Vora, Thaddeus Kumari and colleagues, with an educational ty from [email or web address]. TYE-7 Assessment Billing TYE-7 Assessment Tool: TYE-7 Assessment 72941 Review of Systems Const Denies chills, Denies fatigue, Denies fever(s), Denies headache(s) and Denies w eakness Eyes Denies change in vision ENT Denies dizziness, Denies headache(s), Denies hearing loss, Denies nasal congestion, Denies sinus pain, Denies sinus pressure and Denies sore throat Card Denies chest pain, Denies lightheadedness, Denies dyspnea and Denies other (palpitations) Resp Denies cough, Denies dyspnea and Denies wheezing GI Denies abdominal pain, Denies melena, Denies hematochezia, Denies change in bowel habits, Denies dyspepsia and Denies nausea Denies hematuria and Denies dysuria Musc Denies abnormal gait, Denies myalgias, Denies arthralgias, Denies numbness and Denies tingling Skin/Breast Denies rash, Denies unusual bruising and Denies wounds Neuro Denies abnormal gait, Denies dizziness, Denies headache(s), Denies memory loss, Denies numbness, Denies Sensory deficit (Neuro), Denies tingling and Denies weakness Psych Denies anxiety, Denies depression and Denies memory loss Endo Denies cold intolerance, Denies fatigue, Denies heat intolerance, Denies polydipsia and Denies polyuria Winston/Lymph Denies easy bleeding and Denies easy bruising Aller/Immun Denies wheezing Physical exam (Primary Care) Vital Signs: Last Vital Signs Temp 97.9 F 08/06/24 09:14 Pulse 60 08/06/24 09:14 Resp 14 08/06/24 09:14 BP 126/62 08/06/24 09:18 Pulse Ox 98 08/06/24 09:14 Oxygen Delivery Method Room Air 08/06/24 09:14 BMI result Body Mass Index 27.2 Tobacco/Smoking Status: Tobacco use Status Tobacco use date assessed 09/21/23 08/06/24 09:18 Patient Tobacco Use Status Never used Tobacco 08/06/24 09:18 Tobacco use type Cigarette 08/06/24 09:18 e-Cigarette/Vaping Use Never Used 08/06/24 09:18 PHQ-9: PHQ-9 Score PHQ-9: Total score 0 08/06/24 09:18 Depression Screening Interpretation: Negative Thrive Assessment: Date of Thrive Assessment Date Thrive assessed 08/06/24 08/06/24 09:18 Currently or been in a relationship where the following occur: No concerns reported Const General: no acute distress, well developed, alert and awake Nutritional Appearance: well nourished Orientation/consciousness: patient oriented x3 HENMT Head: Yes normocephalic and Yes atraumatic Ears: hearing grossly normal bilaterally and TM's normal bilaterally General nose exam: Normal external nose present and Normal nares present Mouth: Normal oral and palatal mucosa present and moist mucous membranes Teeth and gingiva: dentition normal Throat: Yes posterior oropharynx normal Eyes General: appearance normal, both eyes and all related structures Pupils: Equal, round and reactive pupils present and Pupil accommodation reflex normal EOM: EOMs intact bilaterally Neck Neck: Yes normal visual inspection, Yes no lymphadenopathy and Yes trachea midline Thyroid: Thyroid normal Carotids: no bruits Lymphatic: no lymphadenopathy noted Chest Chest palpation & inspection: normal inspection of the chest Resp Effort & Inspection: normal respiratory effort Auscultation: clear to auscultation bilaterally Cardio Rate: regular rate Rhythm: regular rhythm Heart sounds: S1 normal heart sound present, S2 normal heart sound present, no gallops, no murmurs and no rubs Bruits: no abdominal aortic bruits and no carotid bruits GI Palpation (GI): No Abdominal aortic bruit present, Soft to palpation, nontender, No hepatosplenomegaly present and No Rebound tenderness present Auscultation: normal bowel sounds General: Yes no CVA tenderness Back/Spine/Pelvis Back: no CVA tenderness Cervical Spine: cervical ROM normal and No Cervical spine tenderness Thoracic/Lumbar Spine: thoraco-lumbar ROM normal, No pain with thoraco-lumbar ROM, No thoracic spinal tenderness and No lumbar spinal tenderness Skin Lesions: no lesions Rashes: no rashes Trauma: no lacerations or abrasions Wounds: no wounds Nails: normal Neuro General: patient oriented x3 Cranial nerves: Yes Equal, round and reactive pupils present Cognition (Neuro): normal cognition Gait exam (Neuro): Normal gait present Motor exam (neuro): 5/5 motor strength present throughout Sensory Exam: No Sensory deficit (Neuro) Deep tendon reflexes (DTR's): Right patellar reflex intensity grade: 2+ and Left patellar reflex intensity grade: 2+ Extrem General: Yes normal to inspection and No edema Psych Appearance: grossly normal Affect: normal affect Attitude: cooperative Thought process: Normal thought process present Coding Level of Care Code Est Pt Level 3 (04432) Est Pt Prev Care >65y(33164) Diagnoses Adult general medical exam Z00.00 Hyperlipidemia E78.5 PAC (premature atrial contraction) I49.1 Thrombocytopenia D69.6 Screening for prostate cancer Z12.5 Screening for colon cancer Z12.11 Immunization counseling Z71.85 Additional Codes TYE-7 Assessment Billing - TYE-7 Assessment Tool: TYE-7 Assessment 10917 ([id number]) PHQ-9 - 58586 - PHQ-9 Billing: Yes ([id number]) Assessment & Plan Assessment & Plan (1) Adult general medical exam: Code(s): Z00.00 - Encounter for general adult medical examination without abnormal findings Category: Medical Plan: 63-year-old?male?presents?for?complete?physical?exam Encouraged?healthy?diet?with?active?lifestyle?and?plenty?of?exercise (2) Hyperlipidemia: Code(s): E78.5 - Hyperlipidemia, unspecified Category: Medical Plan: Well?controlled?on?atorvastatin Continue?current?medication (3) PAC (premature atrial contraction): Code(s): I49.1 - Atrial premature depolarization Category: Medical Plan: Controlled?with?metoprolol Continue?medication (4) Thrombocytopenia: Code(s): D69.6 - Thrombocytopenia, unspecified Category: Medical Plan: Mild?stable Will?continue?to?monitor (5) Screening for prostate cancer: Code(s): Z12.5 - Encounter for screening for malignant neoplasm of prostate Category: Medical Plan: PSA?is?within?range Will?continue?annual?screening (6) Screening for colon cancer: Code(s): Z12.11 - Encounter for screening for malignant neoplasm of colon Category: Medical Plan: Patient?says?he?had?a?colonoscopy?at?at?[facility]?at?age?59. Request?report (7) Immunization counseling: Code(s): Z71.85 - Encounter for immunization safety counseling Category: Medical Plan: Recommended?pneumonia?shot and flu shot Orders: Orders Testosterone, Free/Total Today Z00.00 - Encounter for general adult medical examination without abnormal findings
[2024-08-06 09:14] VITALS: BP 134/62; PULSE 60; RESP 14; TEMP 36.6; O2SAT 98; BMI 27.2
[2024-08-06 09:18] VITALS: BP 126/62
== END 2024-08-06 10:05 | disposition home or self-care (01) ==
PROVIDERS: PCP Family Medicine; Visit Provider Family Medicine
DX: Z00.00 Encounter for general adult medical examination without abnormal findings (principal); E78.5 Hyperlipidemia, unspecified; I49.1 Atrial premature depolarization; D69.6 Thrombocytopenia, unspecified; Z12.5 Encounter for screening for malignant neoplasm of prostate; Z12.11 Encounter for screening for malignant neoplasm of colon; Z71.85 Encounter for immunization safety counseling

== ENCOUNTER → 2024-08-06 08:41 | Outpatient (BNVA) | payer OTHER, SELFPAY | PROVIDERS: PCP Family Medicine; Visit Provider Family Medicine | DX: Z00.00 Encounter for general adult medical examination without abnormal findings (principal); E78.5 Hyperlipidemia, unspecified; I49.1 Atrial premature depolarization; D69.6 Thrombocytopenia, unspecified; Z79.899 Other long term (current) drug therapy; Z71.85 Encounter for immunization safety counseling | CPT/HCPCS: 96127 ==

== ENCOUNTER 2024-08-07 07:42 | Outpatient (REF) | payer OTHER, SELFPAY ==
[2024-08-12 14:49] LABS: Testosterone, Free 62.9 pg/mL (35.0-155.0); Testosterone, Total 511 ng/dL (250-1100)
== END 2024-08-07 07:43 | disposition home or self-care (01) ==
LOC: HO.WFDLDS 07:42
PROVIDERS: Visit Provider Family Medicine
DX: Z00.00 Encounter for general adult medical examination without abnormal findings (principal)
CPT/HCPCS: 36415; 84402; 84403

== ENCOUNTER 2024-10-01 08:13 | Outpatient (AMB) | payer OTHER, SELFPAY ==
[2024-10-01 08:30] VITALS: PULSE 68; TEMP 36.8; O2SAT 99
--- NOTE | 2024-10-01 08:30 | MHC.OFFWIV ---
Intake Vital Signs 10/01/24 08:30 10/01/24 08:31 Height 5 ft 11 in Weight 195 lb BMI 27.2 BP 126/72 Blood Pressure Location Rt brachial Position Sitting Pulse 68 Pulse Source Auscultation Temp 98.3 F Pulse Oximetry (%) 99 Oxygen Delivery Method Room Air Intake Visit Reasons: Sore throat, ear ache and cough Patient Tobacco Use Status: Never used Tobacco Allergies No Known Allergies Allergy (Verified 10/01/24 08:30) Medication List - Last Reconciled 10/01/24 by Nieves Solorio, STEREOTYPER HELPER- atorvastatin 20 mg PO DAILY 90 days metoprolol succinate ER (Toprol XL) 100 mg PO DAILY 90 days valacyclovir 500 mg PO DAILY 90 days HPI HPI Comments History of Present Illness Details The patient is a 63-year-old male presenting with persistent body aches, sore throat, and ear pain that have been ongoing for approximately three weeks. The patient reports experiencing fluctuating symptoms during this period, with no significant relief, describing these symptoms as being up and down. He initially thought he had a cold due to a productive cough expelling brown and green sputum, but he has continued to experience fatigue and a lack of energy. The patient also describes a dry cough that becomes productive with green and brown sputum in the mornings. He reports congestion in the head and cheeks and a persistent sore throat, which has occasionally led to voice loss. The left ear has been noted to feel worse than the right, both of which appear very red upon examination. The patient has not received a flu shot this season and attributes frequent exposure to his grandson, who is in daycare, as a potential source of illness. There is no mention of other medical history or chronic conditions impacting his current symptoms. Social History - Frequent contact with family, notably a grandson who attends daycare. Physical Exam General: Awake, alert. No apparent distress Eyes: Sclera and conjunctiva clear bilaterally Nose: Nares white d/c bilat, turbinates within normal limits, + nasal congestion Ears: Tympanic membranes intact, both ears very red, left more so Throat: Moist mucosa membrane, pharynx within normal limits, no exudate, uvula midline, + PND, voice wraspy Cardiovascular: Regular rate and rhythm Respiratory: Clear to auscultation bilaterally Discussion Notes The patient and I discussed the continuation of symptoms over the past three weeks, which warrants beginning pharmacologic intervention at this point. Given the presence of ear pain, sore throat, consistent nasal congestion, and clear signs of otitis media, we discussed antibiotic options. Although Augmentin was initially considered, the patient reported better response to azithromycin in the past and requested this medication. After considering the patient's medical history and preferences, we opted for azithromycin (Z-Ryley) for treatment, which the patient agreed to. We also discussed the use of a saline nasal rinse and possibly using qhog-bgs-wrizxjf Flonase or a nasal spray to help manage the nasal congestion and postnasal drip. No procedural risks were extensively discussed as no procedures were required. Follow-up was implied to be unnecessary unless symptoms persist or worsen. Recommendations for continuance of antibiotics beyond 48 hours even if symptoms alleviate were clearly communicated. Patient Instructions - Take azithromycin (Z-Ryley) as prescribed: follow dosage instructions as provided by the pharmacy. - Use saline nasal rinse to clear nasal congestion. - Consider ofxb-lmo-tdlkzfv Flonase or similar nasal spray for additional symptom relief. - Complete full course of antibiotics even if symptoms improve. - Seek medical attention if symptoms persist beyond one week or worsen. Plan The differential diagnosis includes acute otitis media, acute pharyngitis, and nasal congestion, likely attributed to a viral or bacterial infection given the chronicity and symptomology. Treatment plan includes initiating azithromycin, given the patient's preference and previous positive response to this medication. This will address potential bacterial infections affecting the ears, nose, and throat. Additional management includes symptomatic relief measures such as saline nasal irrigation and possibly intranasal corticosteroids to alleviate nasal congestion and postnasal drip, which contributes to pharyngitis. Re-evaluation will be self-initiated by the patient if symptoms do not resolve or worsen, which would indicate a need for further in-person assessment or alternative therapy strategies. Preventive care in the form of influenza vaccination was recommended for future prevention, with a brief discussion on the importance of annual vaccination, though the patient opted not to receive it this season. Patient was informed and verbally consented to the use of an ambient scribe for clinic note documentation during this visit. [facility] Social History Housing: House Patient Tobacco Use Status: Never used Tobacco Tobacco use type: Cigarette e-Cigarette/Vaping Use: Never Used Second Hand Smoke Exposure: No service: No Current occupational status: employed Current occupational exposures/hazards: No Cognitive needs: No Hearing needs: No Vision needs: No Assessment & Plan Assessment & Plan (1) Acute bacterial sinusitis: Code(s): J01.90 - Acute sinusitis, unspecified; B96.89 - Other specified bacterial agents as the cause of diseases classified elsewhere (2) Post-nasal drip: Code(s): R09.82 - Postnasal drip Plan: . Plan . Medications: New azithromycin For 250 mg dose pack: take 500 mg today (day 1), then 250 mg for 4 days (days 2-5) PO 5 days 6 tabs 0RF Patient Instructions: What Is It? Sinuses are air-filled spaces behind the bones of the upper face: between the eyes and behind the forehead, nose and cheeks. The lining of the sinuses are made up of cells with tiny hairs on their surfaces called cilia. Other cells in the lining produce mucus. The mucus traps germs and pollutants and the cilia push the mucus out through narrow sinus openings into the nose. When the sinuses become inflamed or infected, the mucus thickens and clogs the openings to one or more sinuses. Fluid builds up inside the sinuses causing increased pressure. Also bacteria can become trapped, multiply and infect the lining. This is sinusitis. Prevention There are some measures you can take to decrease your risk of developing sinusitis. If you smoke cigarettes, you should quit. The smoke can irritate nasal passageways and increase the likelihood of infection. Nasal allergies can trigger sinus infections, too. By identifying the allergen (the substance causing the allergic reaction) and avoiding it, you can help prevent sinusitis. If you have congestion from a cold or allergies, the following may help to reduce the risk of developing sinusitis: Drink lots of water. This thins nasal secretions and keeps mucous membranes moist. Use steam to soothe nasal passages. Breathe deeply while standing in a hot shower, or inhale the vapor from a basin filled with hot water while holding a towel over your head. Avoid blowing your nose with great force, which can push bacteria into the sinuses. Some doctors advise periodic home nasal washings to clear secretions. This may help prevent, and also treat, sinus infections. Treatment Many sinus infections improve without treatment. However, several medications may speed recovery and reduce the chance that an infection will become chronic. Decongestants - Congestion often triggers sinus infections, and decongestants can open the sinuses and allow them to drain. Several are available: Pseudoephedrine (Sudafed) is available without prescription, alone or in combination with other medications in multi-symptom cold and sinus remedies. Pseudoephedrine can cause insomnia, racing pulse and jitteriness. Do not use if you have high blood pressure or a heart condition. Phenylephrine (such as Sudafed PE) is an alternative gwos-hpg-rpjouav oral decongestant. If you take products containing oral phenylephrine, check with the pharmacist to be certain there is no interaction with other medications you take. Oxymetazoline (Afrin, Dristan and others) and phenylephrine (José Miguel-Synephrine and others) are found in nasal sprays. They are effective and may be less likely to cause the side effects seen with pseudoephedrine. However, using a nasal decongestant for more than three days can cause worse symptoms when you stop the medication. This is called the rebound effect. Antihistamines - These medications help to relieve the symptoms of nasal allergies that lead to inflammation and infections. However, some doctors advise against using antihistamines during a sinus infection because they can cause excessive drying and slow the drainage process. Ztlh-yvy-eslhpvb antihistamines include diphenhydramine (Benadryl and others), chlorpheniramine (Chlor-Trimeton and others) and loratadine (Claritin). Fexofenadine (Laxmi) and cetrizine (Zyrtec) are available by prescription. Nasal steroids - Anti-inflammatory sprays such as mometasone (Nasonex) and fluticasone (Flonase), both available by prescription, reduce swelling of nasal membranes. Like antihistamines, nasal steroids can be most useful for those who have nasal allergies. Nasal steroids tend to produce less drying than antihistamines. Unlike nasal decongestants, nasal steroids can be used for prolonged periods. Saline nasal sprays - These salt-water sprays are safe to use and can provide some relief by adding moisture to the nasal passages, thinning mucus secretions and helping to flush out any bacteria that may be present. Pain relievers - Acetaminophen (Tylenol), ibuprofen (Advil, Motrin and others) or naproxen (Aleve) can be taken sinus pain. Antibiotics - Your doctor may prescribe an antibiotic if he or she suspects that a bacterial infection is causing your sinusitis. If you start taking an antibiotic, complete the entire course so that the infection is completely killed off. Not all cases of sinusitis require antibiotic treatment: Talk with your doctor about whether an antibiotic is right for you. Keep in mind that antibiotics can cause side effects, such as allergic reactions, rash and diarrhea. In addition, overusing antibiotics eventually leads to the spread of bacteria that no longer can be killed by the most commonly prescribed antibiotics. When To Call A Professional Contact a doctor if you experience facial pain along with a headache and fever, cold symptoms that last longer than seven to 10 days, or persistent green discharge from the nose. If your symptoms don't improve within a week of beginning treatment, call your doctor. Call sooner if symptoms are getting worse. If you have repeated bouts of acute sinusitis, you may have allergies or another treatable cause of sinus congestion. Ask your doctor for advice. Coding Level of Care Code Est Pt Level 3 (67345) Diagnoses Acute bacterial sinusitis J01.90; B96.89 Post-nasal drip R09.82
[2024-10-01 08:31] VITALS: BP 126/72; BMI 27.2
== END 2024-10-01 08:45 | disposition home or self-care (01) ==
PROVIDERS: PCP Family Medicine; Visit Provider Nurse Practitioner Family
DX: J01.90 Acute sinusitis, unspecified (principal); B96.89 Other specified bacterial agents as the cause of diseases classified elsewhere; R09.82 Postnasal drip

== ENCOUNTER 2025-08-05 11:54 | Outpatient (REF) | payer OTHER, SELFPAY ==
[2025-08-05 15:16] LABS: Appearance Urine Turbid; Glucose Urine UA Negative (Negative); PH 6.5 (5.0-9.0); Specific Gravity - Urine <= 1.005 (1.005-1.025)
[2025-08-05 18:03] LABS: MANUAL DIFF FLAG NO
[2025-08-05 18:16] LABS: Hematocrit 44.4 % (42.0-52.0); Hemoglobin 14.7 g/dl (14.0-18.0); Imm Gran Abs Auto 0.02 X10*3/uL (0.00-0.03); Imm Gran Pct Auto 0.3 % (0.0-0.4); Lymphocytes Absolute Auto 1.9 X10*3/uL (1.2-4.9); Mean Corpuscular HGB Conc 33.1 g/dl (31.0-36.0); Mean Corpuscular Hemoglobin 30.0 pg (27.0-33.0); Mean Corpuscular Volume 90.6 fL (80.0-98.0); NRBC Abs Auto 0.000 X10*3/uL (0.0-0.012); NRBC Pct Auto 0.0 /100WBC (0.0-0.2); Platelet Count 156 X10*3/uL (160-400); Red Blood Count 4.90 X10*6/uL (4.60-5.80); White Blood Count 6.2 X10*3/uL (4.8-10.8)
[2025-08-05 18:52] LABS: Alanine Aminotransferase 36 U/L (0-40); Albumin Level 4.4 g/dL (3.5-5.0); Alkaline Phosphatase 76 U/L (39-117); Anion Gap 10 (12-20); Aspartate Amino Transferase 34 U/L (5-37); Blood Urea Nitrogen 15 mg/dL (9-16); Calcium 9.1 mg/dL (8.4-10.2); Carbon Dioxide 26 mmol/L (22-29); Chloride 108 mmol/L (96-108); Cholesterol 128 mg/dL (<200); Estimated Glomerular Filt Rate > 60; HDL Cholesterol 43 mg/dL (>40); Potassium 4.3 mmol/L (3.3-5.1); Sodium 140 mmol/L (135-145); Total Protein 7.2 g/dL (6.5-8.0); Triglycerides 96 mg/dL (<150)
== END 2025-08-05 11:55 | disposition home or self-care (01) ==
LOC: HO.WFDLDS 11:54
PROVIDERS: Visit Provider Family Medicine
DX: Z00.00 Encounter for general adult medical examination without abnormal findings (principal); Z12.5 Encounter for screening for malignant neoplasm of prostate; I10 Essential (primary) hypertension
CPT/HCPCS: 36415; 80053; 80061; 81003; 82043; 82570; 84153; 84443; 85025

== ENCOUNTER 2025-08-08 09:01 | Outpatient (AMB) | payer OTHER, SELFPAY ==
--- NOTE | 2025-08-08 09:02 | MHC.PC.OV ---
Vital Signs 08/08/25 09:09 Height 5 ft 11 in Weight 206 lb BMI 28.7 BP 129/66 Blood Pressure Location Lt brachial Position Sitting Respiration 16 Pulse 63 Pulse Source Pulse Oximeter Temp 97.6 F Temp Source Oral Pulse Oximetry (%) 98 Oxygen Delivery Method Room Air Intake Visit Reasons: CPE with f/u labs and health maint. 30 mins Intake Note: patient here for CPE with follow up labs and health maint. 30 mins Autism Motor Specialist Required: No Allergies No Known Allergies Allergy (Verified 08/08/25 09:07) Tobacco use date assessed: 08/08/25 Fall risk assessment: No Falls in past year Last assessed Fall Risk: 08/08/25 Dental Screening Dental Screen Date: 08/08/25 Did you have a dental visit in the last 12 months?: Yes Did you have a dental problem in the last 6 months where you did not have access to dental care?: No Was dental information given to patient?: Patient has dentist HPI CPE with f/u labs and health maint. 30 mins HPI Details 64 y.o male presents for a CPE with f/u labs and health maint. Labs drawn 08/05/25. Reviewed labs with pt. Triglycerides 96. TC 128. LDL 66. HDL 43. He is on artovastatin 20mg daily. PSA 1.32. TSH 3.02. PFSH Social History (Updated 08/08/25 @ 09:08 by JORGE ALBERTO Mccrary) Housing: House Patient Tobacco Use Status: Never used Tobacco Tobacco use type: Cigarette e-Cigarette/Vaping Use: Never Used Second Hand Smoke Exposure: No service: No Current occupational status: employed Current occupational exposures/hazards: No Cognitive needs: No Hearing needs: No Vision needs: No Questionnaire PHQ-9 Over the last 2 weeks, how often have you been bothered by any of the following problems? 1. Little interest or pleasure in doing things: not at all 2. Feeling down, depressed, or hopeless: not at all 3. Trouble falling or staying asleep, or sleeping too much: not at all 4. Feeling tired or having little energy: not at all 5. Poor appetite or overeating: not at all 6. Feeling bad about yourself - or that you are a failure or have let yourself or your family down: not at all 7. Trouble concentrating on things, such as reading the newspaper or watching television: not at all 8. Moving or speaking so slowly that other people could have noticed. Or the opposite - being so fidgety or restless that you have been moving around a lot more than usual: not at all 9. Thoughts that you would be better off or of hurting yourself in some way: not at all Total score: 0 Depression Screening Interpretation: Negative Depression Screening Done: Yes 01390 - PHQ-9 Billing: Yes Source: Developed by Drs. Mak Davis, Tiffanie Vora, Thaddeus Kumari and colleagues, with an educational ty from [employer]. Thrive Questionnaire Date Thrive assessed: 08/08/25 I am a: Patient What is your living situation today?: I have a steady place to live Within the past 12 months, did the food you bought not last and you didn't have the money to get more?: Never true Within the past 12 months, did you worry whether your food would run out before you got money to buy more?: Never true Do you have trouble paying for medicines?: No Do you have trouble getting transportation to medical appointments?: No Do you have trouble paying your heating and electricity bill?: No Do you have trouble taking care of your child, family member or friend?: No Do you have trouble with day-to-day activities such as bathing, preparing meals, shopping, managing finances, etc.?: No Are you currently unemployed and looking for a job?: No Are you interested in more education?: No Please select the resources that you would like help with: None Currently or been in a relationship where the following occur: No concerns reported THRIVE Score: 0 AUDIT C Alcohol Use Questionnaire (AUDIT-C) 1. How often do you have a drink containing alcohol?: Never 3. How often do you have six or more drinks on one occasion?: Never Total Score: 0 Score Reviewed/Action Taken: Yes TYE-7 AMB Questionnaire TYE-7 Date TYE - 7 assessed: 08/08/25 Feeling nervous, anxious, or on edge: 0 = Not at all Not being able to stop or control worryin = Not at all Worrying too much about different things: 0 = Not at all Trouble relaxin = Not at all Being so restless that it is hard to sit still: 0 = Not at all Becoming easily annoyed or irritable: 0 = Not at all Feeling afraid as if something awful might happen: 0 = Not at all Total TYE-7 score (0-4 normal; 5-9 mild; 10-14 moderate; 15-21 severe): 0 Source: Developed by Drs. Mak Davis, Tiffanie Vora, Thaddeus Kumari and colleagues, with an educational ty from [employer]. TYE-7 Assessment Billing TYE-7 Assessment Tool: TYE-7 Assessment 52465 Review of Systems Const Denies chills, Denies fatigue, Denies fever(s), Denies headache(s) and Denies weakness Eyes Denies change in vision ENT Denies dizziness, Denies headache(s), Denies hearing loss, Denies nasal congestion, Denies sinus pain, Denies sinus pressure and Denies sore throat Card Denies chest pain, Denies lightheadedness, Denies dyspnea and Denies other (palpitations) Resp Denies cough, Denies dyspnea and Denies wheezing GI Denies abdominal pain, Denies melena, Denies hematochezia, Denies change in bowel habits, Denies dyspepsia and Denies nausea Denies hematuria and Denies dysuria Musc Denies abnormal gait, Denies myalgias, Denies arthralgias, Denies numbness and Denies tingling Skin/Breast Denies rash, Denies unusual bruising and Denies wounds Neuro Denies abnormal gait, Denies dizziness, Denies headache(s), Denies memory loss, Denies numbness, Denies Sensory deficit (Neuro), Denies tingling and Denies weakness Psych Denies anxiety, Denies depression and Denies memory loss Endo Denies cold intolerance, Denies fatigue, Denies heat intolerance, Denies polydipsia and Denies polyuria Winston/Lymph Denies easy bleeding and Denies easy bruising Aller/Immun Denies wheezing Physical exam (Primary Care) Vital Signs: Last Vital Signs Temp 97.6 F 08/08/25 09:09 Pulse 63 08/08/25 09:09 Resp 16 08/08/25 09:09 BP 129/66 08/08/25 09:09 Pulse Ox 98 08/08/25 09:09 Oxygen Delivery Method Room Air 08/08/25 09:09 BMI result Body Mass Index 28.7 Tobacco/Smoking Status: Tobacco use Status Tobacco use date assessed 08/08/25 08/08/25 09:12 Patient Tobacco Use Status Never used Tobacco 08/08/25 09:08 Tobacco use type Cigarette 08/08/25 09:08 e-Cigarette/Vaping Use Never Used 08/08/25 09:08 PHQ-9: PHQ-9 Score PHQ-9: Total score 0 08/08/25 09:57 Depression Screening Interpretation: Negative Thrive Assessment: Date of Thrive Assessment Date Thrive assessed 08/08/25 08/08/25 09:07 Currently or been in a relationship where the following occur: No concerns reported Const General: no acute distress, well developed, alert and awake Nutritional Appearance: well nourished Orientation/consciousness: patient oriented x3 HENMT Head: Yes normocephalic and Yes atraumatic Ears: hearing grossly normal bilaterally and TM's normal bilaterally General nose exam: Normal external nose present and Normal nares present Mouth: Normal oral and palatal mucosa present and moist mucous membranes Teeth and gingiva: dentition normal Throat: Yes posterior oropharynx normal Eyes General: appearance normal, both eyes and all related structures Pupils: Equal, round and reactive pupils present and Pupil accommodation reflex normal EOM: EOMs intact bilaterally Neck Neck: Yes normal visual inspection, Yes no lymphadenopathy and Yes trachea midline Thyroid: Thyroid normal Carotids: no bruits Lymphatic: no lymphadenopathy noted Chest Chest palpation & inspection: normal inspection of the chest Resp Effort & Inspection: normal respiratory effort Auscultation: clear to auscultation bilaterally Cardio Rate: regular rate Rhythm: regular rhythm Heart sounds: S1 normal heart sound present, S2 normal heart sound present, no gallops, no murmurs and no rubs Bruits: no abdominal aortic bruits and no carotid bruits GI Palpation (GI): No Abdominal aortic bruit present, Soft to palpation, nontender, No hepatosplenomegaly present and No Rebound tenderness present Auscultation: normal bowel sounds General: Yes no CVA tenderness Back/Spine/Pelvis Back: no CVA tenderness Cervical Spine: cervical ROM normal and No Cervical spine tenderness Thoracic/Lumbar Spine: thoraco-lumbar ROM normal, No pain with thoraco-lumbar ROM, No thoracic spinal tenderness and No lumbar spinal tenderness Skin Lesions: no lesions Rashes: no rashes Trauma: no lacerations or abrasions Wounds: no wounds Nails: normal Neuro General: patient oriented x3 Cranial nerves: Yes Equal, round and reactive pupils present Cognition (Neuro): normal cognition Gait exam (Neuro): Normal gait present Motor exam (neuro): 5/5 motor strength present throughout Sensory Exam: No Sensory deficit (Neuro) Deep tendon reflexes (DTR's): Right patellar reflex intensity grade: 2+ and Left patellar reflex intensity grade: 2+ Extrem General: Yes normal to inspection and No edema Psych Appearance: grossly normal Affect: normal affect Attitude: cooperative Thought process: Normal thought process present Coding Level of Care Code Est Pt Level 3 (65139) Est Pt Prev Care >65y(83484) Diagnoses Adult general medical exam Z00.00 Hyperlipidemia E78.5 Screening for prostate cancer Z12.5 Screening for colon cancer Z12.11 Immunization counseling Z71.85 Additional Codes TYE-7 Assessment Billing - TYE-7 Assessment Tool: TYE-7 Assessment 66846 ([id number]) PHQ-9 - 34035 - PHQ-9 Billing: Yes ([id number]) Assessment & Plan Assessment & Plan (1) Adult general medical exam: Code(s): Z00.00 - Encounter for general adult medical examination without abnormal findings Category: Medical Plan: 64-year-old male presents for complete physical exam Exam all within normal range Encouraged healthy diet with active lifestyle and plenty of exercise (2) Hyperlipidemia: Code(s): E78.5 - Hyperlipidemia, unspecified Category: Medical Plan: Lipids well controlled on atorvastatin Continue current medication (3) Screening for prostate cancer: Code(s): Z12.5 - Encounter for screening for malignant neoplasm of prostate Category: Medical Plan: PSA is within normal range Will continue annual screening (4) Screening for colon cancer: Code(s): Z12.11 - Encounter for screening for malignant neoplasm of colon Category: Medical Plan: Patient had colonoscopy with Dr. Slater about 5 years ago and recommended follow-up in 10 years Up-to-date (5) Immunization counseling: Code(s): Z71.85 - Encounter for immunization safety counseling Category: Medical Plan: Discussed immunization recommendations including COVID, pneumonia, flu and shingles. Orders: Orders Comprehensive Cassandra. Panel Fast Today Z00.00 - Encounter for general adult medical examination without abnormal findings Complete Blood Count Auto Diff Today Z00.00 - Encounter for general adult medical examination without abnormal findings Microalbumin, Random (w Creat) Today I10 - Essential (primary) hypertension Lipid Panel Today Z00.00 - Encounter for general adult medical examination without abnormal findings TSH reflex Free T4 Today Z00.00 - Encounter for general adult medical examination without abnormal findings Prostate Specific Antigen Scr Today Z12.5 - Encounter for screening for malignant neoplasm of prostate UA CC w/rflx Micro + Cult Today Z00.00 - Encounter for general adult medical examination without abnormal findings
[2025-08-08 09:09] VITALS: BP 129/66; PULSE 63; RESP 16; TEMP 36.4; O2SAT 98; BMI 28.7
--- OUTSIDE RECORDS SUMMARY | 2025-08-08 10:10 | XMS_ITS | Encounter Summary ---
Author Organization [facility] Address [address] [place] [address] Phone Care Team Providers Care Armature Rewinder Name Role Phone Unknown, Unknown Primary Care Provider Dick hamilton Encounter Details Date Type Department Care Team (Late st Contact Info) Description 07/31/2018 Procedure Pass [facility] [address] [place] [id number] Social History Tobacco Use Types Packs/Day Years Used Date Smoking Tobacco: Never Smokeless Tobacco: Never Sex and Gender Information Value Date Recorded Sex Assigned at Not on file Legal Sex Male 6:25 PM EST Gender Identity Not on file Sexual Orientation Not on file documented as of this encounter Plan of Treatment Not on file documented as of this encounter Visit Diagnoses Not on filedocumented in this encounter Care Teams Armature Rewinder Relationship Specialty Start Date End Date Unknown, Unknown, PCP - General 04/06/18 documented as of this encounter Additional Source Comments The information contained in this document represents components of the legal health record. It is not the complete legal health record.[facility]
--- OUTSIDE RECORDS SUMMARY | 2025-08-08 10:10 | XMS_ITS | Clinical Summary ---
Author Organization [facility] Address [address] [place] [address] Phone Care Team Providers Care Head Scorer Name Role Phone Unknown, Unknown MD Primary Care Provider Dick hamilton Allergies Active Allergy Reactions Criticality Noted Date Comments Wheat 04/10/2018 Medications metoprolol succinate (TOPROL-XL) 50 MG 24 hr tablet Take 100 mg by mouth daily. Active atorvastatin (LIPITOR) 40 MG tablet Take 40 mg by mouth daily. Active valACYclovir (VALTREX) 500 MG tablet Take 500 mg by mouth daily. Active Social History Tobacco Use Types Packs/Day Years Used Date Smoking Tobacco: Never Smokeless Tobacco: Never Education Answer Date Recorded Are you interested in more education? Not on angie e 12/26/2022 Are you concerned about learning? Not on file 12/26/2022 No 12/26/2022 No 12/26/2022 Digital Access Answer Date Recorded No 01/16/2023 No 01/16/2023 No 01/16/2023 Reliable internet access at home? Not on file 01/16/2023 Device with a working camera? Not on file Sex and Gender Information Value Date Recorded Sex Assigned at Not on file Legal Sex Male 6:25 PM EST Gender Identity Not on file Sexual Orientation Not on file Last Filed Vital Signs Vital Sign Reading Time Taken Comments Blood Pressure 124/65 06/06/2018 3:32 PM EDT Pulse 64 06/06/2018 2:35 PM EDT Temperature 36.8 C (98.2 F) 06/06/2018 2:07 PM EDT Respiratory Rate 14 06/06/2018 2:07 PM EDT Oxygen Saturation 97% 06/06/2018 3:32 PM EDT Inhaled Oxygen Concentration - - Weight 90.7 kg (200 lb) 06/06/2018 2:07 PM EDT Height 180.3 cm (5' 11 ) 06/06/2018 2:07 PM EDT Body Mass Index 27.89 06/06/2018 2:07 PM EDT Plan of Treatment Health Maintenance Due Date Last Done Comments Adult Td,Tdap Booster 1960 LIPID PANEL 1958 DEPRESSION SCREENING 1970 HEPATITIS C SCREENING 1976 COLOGUARD 11/30/2003 COLONOSCOPY 11/30/2003 COLORECTAL CANCER SCREENING 11/30/2003 FIT TEST 11/30/2003 FOBT 11/30/2003 SIGMOIDOSCOPY 11/30/2003 VIRTUAL COLONOSCOPY 11/30/2003 PNEUMOCOCCAL VACCINES (50+ y ears) (1 of 1 - PCV) 2008 ZOSTER VACCINES (1 of 2) 2008 INFLUENZA VACCINE (#1) 2025 COVID-19 VACCINE (2 - 2024-2 6 season) 2025 11/07/2020 RSV VACCINE (1 - 1-dose 75+ series) 2033 SMOKING STATUS SCREENING (On ce After 26 Yrs) Completed 06/06/2018 HEPATITIS A VACCINES Aged Out No long er eligible based on patient's age to complete this topic HIB VACCINES Aged Out No longer eligi ble based on patient's age to complete this topic MENINGOCOCCAL VACCINES (ACWY) Aged Out No longer eligible based on patient's age to complete this topic MENINGOCOCCAL VACCINES (B) Aged Out N o longer eligible based on patient's age to complete this topic Medical Devices Not on file Insurance DR [place], [place] [id number] [employer] PPO C[employer] PPO [employer] PPO [employer] [place] [place] [id number] [place] [id number] [facility] PPO Care Teams Head Scorer Relationship Specialty Start Date End Date Unknown, Unknown, PCP - General 04/06/18 Additional Source Comments The information contained in this document represents components of the legal health record. It is not the complete legal health record.[facility]
--- OUTSIDE RECORDS SUMMARY | 2025-08-08 10:10 | XMS_ITS | Clinical Summary ---
[facility] Organization [facility] Address [address] [place] [address] Care Team Providers Care Inside Sales Recruiter Name Role Phone Roverto Rain MD Primary Care Provider [phone] Encounters Date Type Department Care Team Description 06/25/2025 Telephone Gastroenterology - [address] [place] [address] Je Blue MD from Last 3 Months Surgical History Surgery Date Site/Laterality Comments SHOULDER SURGERY PROCEDURE:SHOULDER SURGERY Medical History Medical History Date Comments High blood pressure DX:High bloo d pressure Social History Tobacco Use Types Packs/Day Years Used Date Smoking Tobacco: Never Assessed Sex and Gender Information Value Date Recorded Sex Assigned at Not on file Legal Sex Male 1:48 PM EST Gender Identity Not on file Sexual Orientation Not on file Last Filed Vital Signs Vital Sign Reading Time Taken Comments Blood Pressure - - Pulse - - Temperature - - Respiratory Rate - - Oxygen Saturation - - Inhaled Oxygen Concentration - - Weight 88.5 kg (195 lb) 07/14/2022 9:19 AM EST Height 180.3 cm (5' 11 ) 07/14/2022 9:19 AM EST Body Mass Index 27.2 07/14/2022 9:19 AM EST Plan of Treatment Health Maintenance Due Date Last Done Comments Colorectal Cancer Screening: Colonoscopy 1958 DTaP,Tdap,and Td Vaccines (1 - Tdap) 1977 Pneumococcal Vaccine: 50+ Ye ars (1 of 1 - PCV) 2008 Zoster Vaccines (1 of 2) 2008 Abdominal Aortic Aneurysm (A AA) Screen 07/20/2022 Cholesterol Screening (Lipid Panel) 07/20/2022 Hepatitis C Screening 07/20/2022 Social Influencers of Health Screening 07/20/2022 Falls Risk Assessment 11/30/2023 Depression Screening 08/22/2024 COVID-19 Vaccine ( - 2024-2 6 season) 2025 Influenza Vaccine (#1) 2025 RSV Immunization Adult Patie nts (1 - 1-dose 75+ series) 2033 HIB Vaccines Aged Out No longer eligi ble based on patient's age to complete this topic HPV Vaccines Aged Out No longer eligi ble based on patient's age to complete this topic Hepatitis A Vaccines Aged Out No long er eligible based on patient's age to complete this topic Hepatitis B Vaccines Aged Out No long er eligible based on patient's age to complete this topic IPV Vaccines Aged Out No longer eligi ble based on patient's age to complete this topic MMR Vaccines Aged Out No longer eligi ble based on patient's age to complete this topic Meningococcal ACWY Vaccine Aged Out N o longer eligible based on patient's age to complete this topic Meningococcal B Vaccine Aged Out No l onger eligible based on patient's age to complete this topic RSV Immunization Patients Un reggie 20 months Aged Out No longer eligible b ased on patient's age to complete this topic Varicella Vaccines Aged Out No longer eligible based on patient's age to complete this topic Care Teams Inside Sales Recruiter Relationship Specialty Start Date End Date Roverto Rain MD [address] [place] [address] Dr Shimon [place] PCP - General Family Medicine 05/31/22
--- OUTSIDE RECORDS SUMMARY | 2025-08-08 10:10 | XMS_ITS ---
Author Name [facility] Organization Unknown Encounters Encounter Type Encounter Reason Primary Diagnosis Location Date Ambulatory [facility] [place] 01/12/2023 Ambulatory [facility] [place] 01/10/2023 Care Team Organization Name Specialty Phone Email Start Date End Da te [facility] [place] [facility] [place] THEO ARCHULETA Primary Care 07/22/2022 04/09/2024
--- OUTSIDE RECORDS SUMMARY | 2025-08-08 10:10 | XMS_ITS | Clinical Summary ---
Author Organization [facility] Prior to 01/19/[address] [place] [address] Care Team Providers Care Catalogue Illustrator Name Role Phone Roverto Rain MD Primary Care Provider [phone] Allergies No known active allergies Medications Medication Sig Dispensed Refills Start Date End Date Status atorvastatin (LIPITOR) tablet 40 mg Take 40 mg by mouth. 0 Active Toprol XL 50 MG 24 hr tablet Take 50 mg by mouth 2 (two) times a day. 0 11/23/2021 Active valACYclovir (VALTREX) 500 MG tablet Take 500 mg by mouth daily. 0 10/20/2021 Active Active Problems Problem Noted Date Diagnosed Date Traumatic rotator cuff tear, right, sequela 02/2022 Social History Tobacco Use Types Packs/Day Years Used Date Smoking Tobacco: Never Assessed Sex and Gender Information Value Date Recorded Sex Assigned at Not on file Gender Identity Not on file Sexual Orientation Not on file Job Start Date Occupation Industry Not on file Not on file Not on file Last Filed Vital Signs [...] Health Maintenance Due Date Last Done Comments Hepatitis C Screening 1958 COVID-19 Vaccine (#1) 05/31/1959 Depression Screening 1970 BMI Counseling 1976 Preventative Health Evaluation 1976 DTap / Tdap / Td (1 - Tdap) 1977 Colon Cancer Screening (Colonoscopy) 11/30/2003 Shingrix-Zoster Vaccine (1 of 2) 2008 Fall Risk Assessment 11/30/2023 Pneumococcal Vaccine (1 of 1 - PCV) 11/30/2023 Influenza Vaccine (#1) 2025 RSV Adult > 60+ Yrs or Pregn ant (1 - 1-dose 75+ series) 2033 Hepatitis B Vaccines Aged Out No long er eligible based on patient's age to complete this topic RSV Ped < 20 months Aged Out No longe r eligible based on patient's age to complete this topic Care Teams Catalogue Illustrator Relationship Specialty Start Date End Date Roverto Rain MD [address] [place] [address] PCP - General Family Medicine 05/31/22
== END 2025-08-08 09:59 | disposition home or self-care (01) ==
LOC: HO.HMCFM 09:02
PROVIDERS: PCP Family Medicine; Visit Provider Family Medicine
DX: Z00.00 Encounter for general adult medical examination without abnormal findings (principal); E78.5 Hyperlipidemia, unspecified; Z12.5 Encounter for screening for malignant neoplasm of prostate

== ENCOUNTER → 2025-08-08 09:01 | Outpatient (BNVA) | payer OTHER, SELFPAY | PROVIDERS: PCP Family Medicine; Visit Provider Family Medicine | DX: Z00.00 Encounter for general adult medical examination without abnormal findings (principal); I10 Essential (primary) hypertension; E78.5 Hyperlipidemia, unspecified; Z71.85 Encounter for immunization safety counseling | CPT/HCPCS: 96127 ==